=== PATIENT | male | born 1980 | race Two or more races ===

== ENCOUNTER 2020-02-08 10:11 | Emergency (ER) | payer OTHER ==
[2020-02-08] MEDS ORDERED: DIPH/PERTUSS(ACELL)/TETANUS VAC/PF 0.5 ML SYR (>=10YO) IM ONE ×2 (10:31→19:00)
--- NOTE | 2020-02-08 10:33 | ER Document Report ---
ED Medical Screen (RME) - General Chief Complaint: Toe Injury Stated Complaint: RIGHT GREAT TOE INJURY Time Seen by Provider: 02/08/20 10:30 Mode of Arrival: Wheelchair Information source: Patient Notes: 29-year-old male presented to ED for injury to the right great toe. He was lifting a wooden wall when he fell on his toe. He does have a crush injury to the toe. He is a diabetic wound on insulin and metformin. He smokes 2 times a week drinks weekly does not use any drugs works at construction. His only medical history is an appendectomy. Patient is alert oriented respirations regu lar nonlabored speaking in full sentences. We have ordered x-rays and Accu-Chek for this as well as tetanus immunization. He will be seen by another provider I have greeted and performed a rapid initial assessment of this patient. A comprehensive ED assessment and evaluation of the patient, analysis of test results and completion of medical decision making process will be conducted by an additional ED providers. Physical Exam - Vital signs Vitals: Temp Pulse Resp BP Pulse Ox 98.0 F 100 16 131/87 H 98 02/08/20 10:02/08/20 10:02/08/20 10:02/08/20 10:02/08/20 10:17 Course - Vital Signs Vital signs: Temp Pulse Resp BP Pulse Ox 98.0 F 100 16 131/87 H 98 02/08/20 10:02/08/20 10:02/08/20 10:02/08/20 10:02/08/20 10:17
[2020-02-08] MEDS ORDERED: OXYCODONE-ACETAMINOPHEN 5-325 MG TABLET PO ONE (16:40)
[2020-02-08] MEDS ORDERED: CEPHALEXIN 500 MG CAPSULE PO ONE (16:40)
--- NOTE | 2020-02-08 16:45 | ER Document Report ---
ED Extremity Problem, Lower - General Chief Complaint: Laceration Stated Complaint: RIGHT GREAT TOE INJURY Time Seen by Provider: 02/08/20 10:30 Mode of Arrival: Wheelchair Notes: CHIEF COMPLAINT: Crush injury right great toe HPI: 29-year-old male presenting for evaluation of a crush injury to the right great toe. Patient was evaluated using the [employer] sorter. Patient complains of pain to the toe. Patient states he is an insulin-dependent diabetic. Patient denies other injuries or complaints. States he is not up-to-date on tetanus vaccination ROS: See HPI - all other systems were reviewed and are otherwise negative Constitutional: no fever Eyes: no drainage, no blurred vision Integumentary: no rash, positive laceration Allergy: no hives Musculoskeletal: + extremity pain or swelling Neurological: no numbness/tingling, no weakness MEDICATIONS: I agree with the patient medications as charted by the RN. ALLERGIES: I agree with the allergies as charted by the RN. PAST MEDICAL HISTORY/PAST SURGICAL HISTORY: Reviewed and agree as charted by RN. SOCIAL HISTORY: Reviewed and agree as charted by RN. FAMILY HISTORY: No significant familial comorbid conditions directly related to patient complaint EXAM: Reviewed vital signs as charted by RN. CONSTITUTIONAL: Alert and oriented and responds appropriately to questions. Well-appearing; well-nourished HEAD: Normocephalic; atraumatic EYES: Conjunctivae clear, sclerae non-icteric ENT: normal nose; no rhinorrhea; moist mucous membranes NECK: Supple without meningismus CARD: symmetric distal pulses RESP: Normal chest excursion without splinting or tachypnea ABD/GI: non-distended BACK: The back appears normal EXT: There is a 1.5 cm laceration at the base of the right great toenail along the base of the nail. The wound does not expose the nail plate or capillary bed at this time. Sensation is intact in the distal tip of the toe to touch with capillary refill less than 3 seconds. 29-year-old male insulin-dependent diabetic with a wound on the SKIN: Normal color for age and race; warm; dry; good turgor NEURO: Moves all extremities equally; Motor and sensory function intact PSYCH: The patient's mood and manner are appropriate. Grooming and personal hygiene are appropriate. MDM: Base of the toenail. The laceration does not extend over the nail bed or nail itself. There is a tuft fracture to the distal toe not adjacent directly to the laceration. There is no direct open or gaping wound to closed with sutures at this time. This was discussed at length with the patient. We will clean the wound area dressed the wound area place him on antibiotics pain medication I will refer him to orthopedics for close follow-up for wound check he may also return here for wound check. We discussed possibilities of infection given his diabetes and he verbalizes understanding of need to return for any worsening symptoms such as pain, redness, drainage or swelling. I will place the patient on Augmentin given his diabetes. Will place him on Percocet for pain. Postop shoe. - Related Data Allergies/Adverse Reactions: No Known Allergies Allergy (Unverified 02/08/20 18:05) Past Medical History - General Information source: Patient - Social History Smoking Status: Unknown if Ever Smoked Family History: Reviewed & Not Pertinent Patient has homicidal ideation: No Physical Exam - Vital signs Vitals: Temp Pulse Resp BP Pulse Ox 98.0 F 100 16 131/87 H 98 02/08/20 10:17 02/08/20 10:17 02/08/20 10:17 02/08/20 10:17 02/08/20 10:17 Course - Vital Signs Vital signs: Temp Pulse Resp BP Pulse Ox 98.0 F 100 16 131/87 H 98 02/08/20 10:17 02/08/20 10:17 02/08/20 10:17 02/08/20 10:17 02/08/20 10:17 - Laboratory Laboratory results interpreted by me: 02/08/20 16:47 POC Glucose 230 H Discharge - Discharge Clinical Impression: Crushing injury of toe of right foot Qualifiers: Encounter type: initial encounter Qualified Code(s): S97.101A - Crushing injury of unspecified right toe(s), initial encounter Laceration of toe, right, complicated Qualifiers: Encounter type: initial encounter Qualified Code(s): S91.119A - Laceration without foreign body of unspecified toe without damage to nail, initial encounter Fracture of toe of right foot Qualifiers: Encounter type: initial encounter Toe: great toe Fracture type: closed Phalanx: distal Fracture alignment: nondisplaced Qualified Code(s): S92.424A - Nondisplaced fracture of distal phalanx of right great toe, initial encounter for closed fracture Condition: Stable Disposition: HOME, SELF-CARE Additional Instructions: Follow-up closely with your primary care provider or with orthopedics for further evaluation and treatment. It is imperative that you have a wound check on the toe in the next 3 to 5 days, this can be done with either a primary care provider or orthopedics, if you feel there is worsening swelling, discharge or any overlying redness to the toe that makes you concerned for infection return to the emergency department for reevaluation. You have been prescribed narcotics for pain do not drive if taking narcotics for pain. Make sure you are taking the antibiotics as prescribed to lessen the chance of an infection. Given your diabetes you are at higher risk for infection Realice un seguimiento de cerca con darby proveedor de atencin primaria o con ortopedia para ramona evaluacin y tratamiento adicionales. Es imperativo que se realice un control de la herida en el dedo del pie en los prximos 3 a 5 zuñiga, esto se puede hacer con un mdico de atencin primaria o con un ortopedista, si siente que hay un empeoramiento de la hinchazn, secrecin o cualquier enrojecimiento superpuesto al dedo que le hace preocuparse por la infeccin, vuelva al departamento de emergencias para ramona reevaluacin. Le calderon recetado narcticos para el dolor, no conduzca si anand narcticos para el dolor. Asegrese de berta los antibiticos segn lo prescrito para reducir la posibilidad de ramona infeccin. Dutch darby diabetes, tiene un mayor riesgo de infeccin. Prescriptions: Amoxicillin/Potassium Clav [Augmentin 500-125 Tablet] 1 each PO TID #30 tablet Hydrocodone/Acetaminophen [[place] 5-325 mg Tablet] 1 tab PO Q4 PRN #15 tablet PRN Reason: Referrals: STEPHON MARSHALL JR, [ACTIVE PROVISIONAL STAFF] - Follow up as needed
--- NOTE | 2020-02-08 18:19 | RADIOLOGY REPORT (SQ) ---
EXAM DESCRIPTION: TOE RIGHT IMAGES COMPLETED DATE/TIME: 02/08/2020 11:00 am REASON FOR STUDY: GREAT TOE CRUSH COMPARISON: None. NUMBER OF VIEWS: Two views. TECHNIQUE: AP and lateral images acquired of the right first toe. LIMITATIONS: None. FINDINGS: MINERALIZATION: Normal. BONES: Nondisplaced fracture of the distal tuft. No worrisome bone lesions. JOINTS: No effusions. SOFT TISSUES: No soft tissue swelling. No foreign body. OTHER: No other significant finding. IMPRESSION: NONDISPLACED FRACTURE OF THE DISTAL TUFT. COMMENT: SITE OF TRAUMA/COMPLAINT MARKED/STAMP COMPLETED: YES. TECHNICAL DOCUMENTATION: JOB ID: [id number] 2010 [employer]- All Rights Reserved Reading location - IP/workstation name: [email or web address]
--- NOTE | 2020-02-08 18:19 | RADIOLOGY REPORT (SQ) ---
EXAM DESCRIPTION: FOOT RIGHT COMPLETE IMAGES COMPLETED DATE/TIME: 02/08/2020 11:00 am REASON FOR STUDY: Great toe crush injury COMPARISON: None. NUMBER OF VIEWS: Three views. TECHNIQUE: AP, lateral and oblique radiographic images acquired of the right foot. LIMITATIONS: None. FINDINGS: MINERALIZATION: Normal. BONES: Nondisplaced fracture of the distal tuft of the 1st toe. No worrisome bone lesions. JOINTS: No effusions. SOFT TISSUES: No soft tissue swelling. No foreign body. OTHER: No other significant finding. IMPRESSION: NONDISPLACED FRACTURE OF THE DISTAL TUFT OF THE 1ST TOE. TECHNICAL DOCUMENTATION: JOB ID: [id number] 2010 [employer]- All Rights Reserved Reading location - IP/workstation name: [email or web address]
[2020-02-08 18:52] VITALS: BP 125/84
== END 2020-02-08 18:52 | disposition home or self-care (01) ==
LOC: ER 10:11 → EDBD 10:11 → ER 18:52
DX: S97.111A Crushing injury of right great toe, initial encounter (principal); S92.424A Nondisplaced fracture of distal phalanx of right great toe, initial encounter for closed fracture; S91.111A Laceration without foreign body of right great toe without damage to nail, initial encounter; W20.8XXA Other cause of strike by thrown, projected or falling object, initial encounter; Y93.89 Activity, other specified; Y99.0 Civilian activity done for income or pay; E11.9 Type 2 diabetes mellitus without complications; Z79.4 Long term (current) use of insulin; Z23 Encounter for immunization
CPT/HCPCS: 82962; 90471; 90715; 99283